=== PATIENT | female | born 1995 | race Caucasian/White ===

== ENCOUNTER 2021-10-28 19:25 | Emergency (ER) | payer MEDICAID, SELFPAY ==
[2021-10-28 20:26] VITALS: BP 103/84; PULSE 74; RESP 18; TEMP 36.7; O2SAT 96; BMI 29.5
--- NOTE | 2021-10-28 23:44 | ED.GENADULT ---
HPI - General Adult General Chief complaint: General Medical Stated complaint: scratch on face by a squirrel Time Seen by Provider: 10/28/21 23:44 Source: patient Mode of arrival: ambulatory Limitations: no limitations History of Present Illness HPI narrative: scratch on the face by a squirrel 4 hours ago. Patient is not up to date with tetanous. Patient is concerned that she needs a rabies shot. Onset (ago): hour(s) Location: face Severity: mild Exacerbating factors: none Associated symptoms: denies other symptoms Related Data Allergies Allergy/AdvReac Type Severity Reaction Status Date / Time morphine Allergy Severe Anaphylaxis Verified 10/28/21 20:26 Review of Systems Constitutional: Constitutional: Reports no additional constitutional complaints Eyes: Eyes: Reports no additional eye complaints ENT: Denies dizziness Cardiovascular: Cardiovascular: Reports no additional cardiovascular complaints Respiratory: Respiratory: Reports as per HPI Gastrointestinal: Gastrointestinal: Reports no additional gastrointestinal complaints Genitourinary: Genitourinary: Reports no additional female genitourinary complaints Musculoskeletal: Musculoskeletal: Reports no additional musculoskeletal complaints Integumentary/Breasts: Skin/Breast: Denies rash Neurologic: Reports system reviewed and no additional complaints, except as documented, Denies dizziness and Denies Sensory deficit (Neuro) Psychiatric: Psychiatric: Denies anxiety Physical Exam ED Vital Signs: Vital Signs - 24 hr 10/28/21 20:26 Temperature 98.1 F Pulse Rate 74 Respiratory Rate 18 Blood Pressure 103/84 Pulse Oximetry 96 BMI result Body Mass Index 29.5 Const General: healthy appearing Nutritional Appearance: average body habitus Orientation/consciousness: oriented to person and patient oriented x3 Limitations: no limitations HENMT Head: Yes normal to inspection Ears: external ears normal General nose exam: Normal external nose present Mouth: Normal oral and palatal mucosa present and oropharynx normal Throat: Yes posterior oropharynx normal Eyes General: appearance normal, both eyes and all related structures Neck Neck: Yes normal visual inspection Chest Chest palpation & inspection: normal inspection of the chest Resp Auscultation: clear to auscultation bilaterally Cardio Jugular venous distension: no JVD Rate: regular rate Rhythm: regular rhythm Heart sounds: S1 normal heart sound present and S2 normal heart sound present GI Inspection: Yes normal to inspection Palpation (GI): Soft to palpation, nontender and No hepatosplenomegaly present Auscultation: normal bowel sounds General: Yes no CVA tenderness Back/Spine/Pelvis Back: no CVA tenderness Skin General skin exam: no rashes or lesions noted Neuro General: oriented to person and patient oriented x3 Cranial nerves: Yes CN's II-XII intact bilaterally Motor exam (neuro): 5/5 motor strength present throughout Sensory Exam: No Sensory deficit (Neuro) Extrem General: Yes normal to inspection Psych Appearance: grossly normal Course Reevaluation(s) Reevaluation #1: patient does not need rabies vaccine will give adacel shot Time: 23:47 Discharge Plan Discharge Clinical Impression: Animal scratch Patient Disposition: Home, Self-Care Referrals: [facility] [Physician] - 1 week
[2021-10-29] MEDS: Diphth,Pertus(ACell),Tet Adult 0.5 ML SYRINGE IM (00:08)
== END 2021-10-29 00:32 | disposition home or self-care (01) ==
LOC: HO.ED 23:58
PROVIDERS: Emergency Provider Emergency Medicine; PCP Registered Nurse
DX: S00.81XA Abrasion of other part of head, initial encounter (principal); W45.8XXA Other foreign body or object entering through skin, initial encounter; Y93.9 Activity, unspecified; Y92.9 Unspecified place or not applicable; Y99.9 Unspecified external cause status
CPT/HCPCS: 90471; 90715; 99282; 99284